=== PATIENT | male | born 1960 | race Caucasian/White ===

== ENCOUNTER 2018-01-18 16:10 | Emergency (ER) | payer SELFPAY ==
[~2018-01-18 16:10] MED LIST: Sodium Chloride 0.9% 1,000 ML BAG ONE
[2018-01-18] MEDS ORDERED: Ketorolac Tromethamine 30 MG/ML VIAL ONE (16:45)
[2018-01-18] MEDS ORDERED: Ondansetron HCl/PF 4 MG/2 ML Vial ONE (16:45)
[2018-01-18 17:01] LABS: #Basophils 0.1 thou/uL (0.0-0.2); #Eosinphils 0.2 thou/uL (0.0-0.7); #Neutrophils 4.2 thou/uL (1.40-6.50); %Basophils 1.9 % (0.0-1.0); %Eosinophils 3.2 % (0.0-10.0); %Lymphocytes 26.5 % (21.0-51.0); %Monocytes 13.4 % (0.0-10.0); %Neutrophils 55.1 % (42.0-75.0); Hemoglobin 14.3 g/dL (14.0-18.0); Mean Corpuscular HGB CONC 33.3 g/dL (32.0-36.0); Mean Corpuscular Hemoglobin 30.5 pg (27.0-31.0); Mean Corpuscular Volume 91.6 fl (80.0-94.0); Mean Platelet Volume 6.7 fL (7.4-10.4); Platelet Count 314 thou/uL (130-400); Red Blood Cell (RBC) Count 4.68 mill/uL (4.70-6.10); White Blood Cell (WBC) Count 7.6 thou/uL (4.8-10.8)
[2018-01-18 17:10] LABS: INR-International Normal Ratio 1.1; PTT 35.5 SEC (22.9-36.1); Prothrombin Time 14.4 SEC (12.0-14.7)
[2018-01-18 17:17] LABS: ALT (SGPT) 11 U/L (8-55); AST (SGOT) 15 U/L (5-34); Albumin 3.9 g/dL (3.5-5.0); Alkaline Phosphatase 92 U/L (40-150); Anion Gap 14 mmol/L (10-20); BUN (Urea Nitrogen) 13 mg/dL (8.4-25.7); Bilirubin, Total 0.9 mg/dL (0.2-1.2); CK (CPK) 244 U/L (30-200); Calc. Creatinine Clearance 0 mL/min (70-130); Calcium 9.2 mg/dL (7.8-10.44); Carbon Dioxide 24 mmol/L (22-29); Chloride 108 mmol/L (98-107); Estimated GFR-MDRD 80; Globulin 3.2 g/dL (2.4-3.5); Glucose 93 mg/dL (70-105); Magnesium 1.9 mg/dL (1.6-2.6); Protein, Total 7.1 g/dL (6.0-8.3); Sodium 142 mmol/L (136-145)
[2018-01-18 17:18] LABS: Acetaminophen Less than 6.0 mcg/mL (10.0-30.0); Alcohol Less than 10 mg/dL (Less than 10); Salicylate Less than 8.0 mg/dL (15.0-30.0)
[2018-01-18 17:21] LABS: CKMB 1.7 ng/mL (0-6.6); Troponin I Less than 0.010 ng/mL (< 0.028)
--- NOTE | 2018-01-18 17:39 | RAD ---
PORTABLE CHEST: 01/18/18 HISTORY: Dizziness. Lungs are clear. Heart and mediastinum appear unremarkable. IMPRESSION: No acute finding. POS: [facility]
--- NOTE | 2018-01-18 17:43 | CT ---
CT OF HEAD NONCONTRAST 01/18/18 INDICATION: Fall with dizziness. FINDINGS: There is no evidence of acute intracranial hemorrhage, mass effect, midline shift or ventriculomegaly . There is no acute fluid level of the imaged paranasal sinuses. Minimal chronic microvascular ischem ic disease is present. IMPRESSION: No acute intracranial hemorrhage or mass effect. POS: [facility]
--- NOTE | 2018-01-18 17:46 | CT ---
FACIAL CT NONCONTRAST 01/18/18 INDICATION: Fall with facial injury, pain, dizziness. FINDINGS: The imaged paranasal sinuses reveal no acute fluid level. Nasal bones are intact. Maxillary sinus wal ls are maintained. There is no evidence of a displaced orbital wall fracture. There is leftward nasal septal deviation with a small associated nasal septal spur. There is no retrobulbar hemorrhage or ma ss effect seen. There is metallic hardware at the mandibular symphysis. There is osseous attenuation at the midline of the maxilla with a prominent foramen cecum. IMPRESSION: No acute facial fracture. POS: [facility]
[2018-01-18 18:07] LABS: Glucose, Urine (Dipstick) Negative (Negative); Leukocyte Negative (Negative); Nitrite Negative (Negative); Protein, Urine (Dipstick) Negative (Neg-Trace); pH, Urine 6.5 (5.0-9.0)
[2018-01-18 18:08] LABS: Bilirubin Small (Negative); Blood, Urine Negative (Negative)
[2018-01-18 18:09] LABS: Bacteria/HPF 1+ HPF (None Seen); Clarity Hazy (Clear); RBC/HPF 0-3 HPF (0-3); Squamous Epithelial 0-3 HPF (0-3); WBC/HPF None Seen HPF (0-3)
--- NOTE | 2018-01-18 18:12 | CT ---
CERVICAL SPINE CT NONCONTRAST 01/18/18 INDICATION: Fall with neck injury and pain, dizziness. FINDINGS: Moderate multilevel degenerative changes of the cervical spine is present. There is associated revers al of cervical lordosis. Degenerative sclerosis is seen at the mid to lower cervical spine. There is trace spondylolisthesis at C3-4. Multilevel facet osteoarthritis is present bilaterally. Trace spond ylolisthesis is present at the cervicothoracic junction. No compression fracture. No evidence of cran iocervical distraction. IMPRESSION: Multilevel degenerative change of the cervical spine without acute fracture evident. POS: [facility]
[2018-01-18 18:26] LABS: Amphetamine Not Detected (NotDetected); Barbiturates Screen Not Detected (NotDetected); Benzodiazepine Screen Not Detected (NotDetected); Cocaine Metabolite Screen Not Detected (NotDetected); Medtox Control Line Valid? VALID (VALID); Methadone Not Detected (NotDetected); Methamphetamine Not Detected (NotDetected); Opiate Screen Not Detected (NotDetected); Oxycodone Screen Not Detected (NotDetected); Phencyclidine (PCP) Not Detected (NotDetected); THC/Cannabinoid Screen Not Detected (NotDetected); Tricyclic Screen Not Detected (NotDetected)
== END 2018-01-18 19:23 | disposition home or self-care (01) ==
LOC: MADERS 16:10
DX: R55 Syncope and collapse (principal); S01.511A Laceration without foreign body of lip, initial encounter; R05 Cough; F17.210 Nicotine dependence, cigarettes, uncomplicated; W19.XXXA Unspecified fall, initial encounter
CPT/HCPCS: 70450; 70486; 71045; 72125; 80053; 80306; 80307; 81001; 82553; 83605; 83735; 83880; 84443; 84484; 85025; 85610; 85730; 87040; 87086; 93005; 96361; 96374; 96375; J1885; J2405; J7050

== ENCOUNTER 2018-05-06 07:45 | Emergency (ER) | payer SELFPAY ==
[2018-05-06] MEDS ORDERED: Loperamide HCl 2 MG CAP ONE (08:45)
[2018-05-06] MEDS ORDERED: Ondansetron ODT 4 MG TAB ONE (08:45)
== END 2018-05-06 08:53 | disposition home or self-care (01) ==
LOC: MADERS 07:45
DX: K52.9 Noninfective gastroenteritis and colitis, unspecified (principal); F17.210 Nicotine dependence, cigarettes, uncomplicated
CPT/HCPCS: 99284; Q0162

== ENCOUNTER 2018-10-30 11:53 | Emergency (ER) | payer SELFPAY ==
[2018-10-30] MEDS ORDERED: Ketorolac Tromethamine 30 MG/ML VIAL ONE (12:51)
--- NOTE | 2018-10-30 12:55 | RAD ---
TWO VIEWS CHEST: Comparison: 05-11-16 History: Cough. FINDINGS: Two views of the chest show normal sized cardiomediastinal silhouette. There is no evidence of consol idation, mass, or pleural effusion. The bones are unremarkable. IMPRESSION: No evidence of acute cardiopulmonary disease. POS: [facility]
== END 2018-10-30 13:15 | disposition home or self-care (01) ==
LOC: MADERS 11:53
DX: J20.9 Acute bronchitis, unspecified (principal); F17.210 Nicotine dependence, cigarettes, uncomplicated
CPT/HCPCS: 71046; 93005; 94640; 96372; J1885; J7620